=== PATIENT | female | born 1955 | race Hispanic/Latino ===

== ENCOUNTER 2023-06-28 07:48 | Day surgery (SDC) | payer OTHER ==
[2023-06-24 09:53] LABS: BASOPHILS # (AUTO) 0.04 K/uL (0.00-0.20); BASOPHILS % (AUTO) 0.6 % (0.0-5.0); EOSINOPHILS # (AUTO) 0.26 K/uL (0.00-0.70); EOSINOPHILS % (AUTO) 3.7 % (0.0-8.0); HEMATOCRIT 39.2 % (36-48); IMMATURE GRANULOCYTE ABSOLUTE 0.03 K/uL (0-1); LYMPHOCYTES # (AUTO) 1.8 K/uL (1.0-4.8); LYMPHOCYTES % (AUTO) 24.8 % (21.0-51.0); MEAN CORPUSCULAR HEMOGLOBIN 31.1 pg (27.0-33.0); MEAN CORPUSCULAR HGB CONC 32.7 g/dL (32.0-36.0); MEAN CORPUSCULAR VOLUME 95.4 fL (79-99); MONOCYTES # (AUTO) 0.5 K/uL (0.1-1.0); MONOCYTES % (AUTO) 7.1 % (3.0-13.0); NEUTROPHILS # (AUTO) 4.5 K/uL (1.8-7.7); NEUTROPHILS % (AUTO) 63.4 % (40.0-77.0); PLATELET COUNT (AUTO) 382 K/uL (130-400); RED BLOOD CELL COUNT(AUTO) 4.11 MIL/uL (4.00-5.50); WHITE BLOOD COUNT (AUTO) 7.1 K/uL (4.8-10.8)
[2023-06-24 10:07] LABS: CREATININE 0.9 mg/dL (0.5-1.5); POTASSIUM 4.8 mmol/L (3.5-5.1)
[2023-06-24 10:12] VITALS: BP 170/90; PULSE 78; RESP 20
[2023-06-28] VITALS (18 sets, daily range): BP systolic 129–149; BP diastolic 73–99; PULSE 62–90; RESP 14–20
[~2023-06-28] VITALS: Ht 152.4 cm; Wt 78.9 kg
[~2023-06-28 07:48] MED LIST: CARB200T6 PO; CETI-89 PO; METO-409 PO; ROSU10TA28 PO; SALBUTAMOL; ZOLP5TAB8 PO
[2023-06-28] MEDS ORDERED: CEFAZOLIN SODIUM 2 GM VIAL ONE (08:00)
[2023-06-28] MEDS ORDERED: LACTATED RINGERS 1000ML 1,000 ML IV ONE (08:00)
[2023-06-28] MEDS ORDERED: OLME-7 PO (08:51)
[2023-06-28] MEDS ORDERED: CLON0.1T PO (08:51)
[2023-06-28] MEDS ORDERED: ALPR1TAB7 PO (08:51)
[2023-06-28] MEDS ORDERED: INDOCYANINE GREEN 25 MG VIAL IJ ONE (10:56)
[2023-06-28] MEDS ORDERED: LIDOCAINE PF 100MG/5ML (2%) SYRINGE 5ML ONE (11:03)
[2023-06-28] MEDS ORDERED: PROPOFOL 10 MG/ML 20ML VIAL IV ONE (11:03)
[2023-06-28] MEDS ORDERED: MIDAZOLAM HCL 1 MG/ML 2ML VIAL ONE (11:04)
[2023-06-28] MEDS ORDERED: ROCURONIUM 10MG/1ML SYR 10 MG/ML ML ONE (11:04)
[2023-06-28] MEDS ORDERED: FENTANYL CITRATE PF 50 MCG/1 ML 2ML VIAL ONE ×2 (11:04→13:01)
[2023-06-28] MEDS ORDERED: ROPIVACAINE 0.5% 5MG/ML 30ML IJ ONE (11:07)
[2023-06-28] MEDS ORDERED: LIDOCAINE HCL 1% 20 ML VIAL ONE (11:14)
[2023-06-28] MEDS ORDERED: BUPIVACAINE/PF 0.25% 10ML VIAL IJ ONE (11:14)
[2023-06-28] MEDS ORDERED: ONDANSETRON 4MG INJ ONE (12:04)
[2023-06-28] MEDS ORDERED: DEXAMETHASONE SOD PHOSPHATE 10MG/ML 1ML VIAL ONE (12:04)
[2023-06-28] MEDS ORDERED: GLYCOPYRROLATE 1 MG/5 ML SYRINGE ONE (12:16)
[2023-06-28] MEDS ORDERED: NEOSTIGMINE 5MG/5ML SYR IV ONE (13:08)
[2023-06-28] MEDS ORDERED: MEPERIDINE-PF 25 MG/ML SYG ONE (14:04)
== END 2023-06-28 15:45 | disposition home or self-care (01) ==
LOC: DAH 07:48
PROVIDERS: ATTEND Student in an Organized Health Care Education/Training Program
DX: K80.20 Calculus of gallbladder without cholecystitis without obstruction (principal); Z20.822 Contact with and (suspected) exposure to COVID-19; J45.909 Unspecified asthma, uncomplicated; I10 Essential (primary) hypertension; I45.10 Unspecified right bundle-branch block; Z79.899 Other long term (current) drug therapy
CPT/HCPCS: 80048; 85025; 36415; 47562; 93005; 88304; A6260; A4663; A6207; J7030; J7120; J3010 ×2; J3490; J1100; J2710; J2001; J2250; J2704; J2405; J2175; J2795; J0690; C1769; A4215; A4223; A4222; A4221; A4600; G0168